=== PATIENT | male | born 1945 | race Asian ===

== ENCOUNTER 2017-07-09 22:40 | Emergency (ER) | payer SELFPAY ==
[~2017-07-09] VITALS: Ht 167.6 cm; Wt 77.1 kg
[2017-07-09 22:43] VITALS: BP 83/71
[2017-07-09] MEDS ORDERED: CALCIUM CHLOR(10%) 100MG/ML 10ML SYRINGE IV ONE (22:45)
[2017-07-09] MEDS ORDERED: EPINEPHrine HCL 1 MG/10 ML SYRG IV ONE (22:45)
[2017-07-09] MEDS ORDERED: SODIUM BICARBONATE 8.4% INJ 50ML SYRINGE IV ONE (22:45)
== END 2017-07-10 06:44 | disposition expired ==
LOC: EDBD 22:40 → ER 22:44
DX: I46.9 Cardiac arrest, cause unspecified (principal)
CPT/HCPCS: 31500; 92950; 99285; J0171